=== PATIENT | male | born 1980 ===

== ENCOUNTER 2021-05-26 11:12 | Emergency (ER) | payer SELFPAY ==
--- NOTE | 2021-05-26 11:15 | ED.URI ---
HPI - URI/Sore Throat General Chief Complaint: Upper Respiratory Infection Stated Complaint: fever/swollen glands/sore throat Time Seen by Provider: 05/26/21 11:15 Source: patient and RN notes reviewed History of Present Illness HPI Narrative: Patient is a 40-year-old male who presents the urgent care with complaints of intermittent fevers, sweating, chills, sore throat for the last 5 days. Patient states that he has been on a [place] for 2 days per his primary care provider and states that symptoms are not improving . Patient has been taking ibuprofen as needed for pain and fever. Denies of any nausea, vomiting or cough. No other acute complaints. No acute distress noted. Patient read the plan of care. Some parts of this dictation were generated by voice recognition software and may contain typographical and/or grammatical inaccuracies. Related Data Home Medications Medication Instructions Recorded Confirmed azithromycin 05/26/21 Allergies Allergy/AdvReac Type Severity Reaction Status Date / Time No Known Allergies Allergy Unverified 12/03/17 15:30 Review of Systems Review of Systems: CONSTITUTIONAL: Reports of fever, chills, sweats EYES: Denies visual changes, redness, or discharge. ENT: Reports of sore throat and swollen glands CARDIOVASCULAR: Denies chest pain, palpitations, or edema. RESPIRATORY: Denies cough or dyspnea. GASTROINTESTINAL: Denies abdominal pain, nausea, vomiting, or diarrhea. GENITOURINARY: Denies dysuria or hematuria. SKIN: Denies rash or itching. MUSCULOSKELETAL: Denies back pain, joint pain, or myalgia. NEUROLOGIC: Denies headache, numbness, or weakness. All other systems reviewed are negative, except as documented in HPI. [facility] Family History Family History (Updated 09/20/17 @ 11:13 by DOCTOR UNKNOWN) Father Hypertension Grandparent Family history of malignant neoplasm Social History Social History Smoking status: Former smoker Smoking end date: 06/07/01 Alcohol intake: current Comments At the time of my signature, I reviewed and agree with the nursing past medical, surgical, social, and family history. There is no relevant family history pertinent to the patient complaint. Exam Narrative: GENERAL: This is a well-nourished, well-developed patient, in no apparent distress. HEAD: normocephalic, atraumatic. EYES: PERRL. Sclera clear/white. Vision is grossly intact. EARS: External ears normal, auditory canals clear and without drainage, TMs normal without perforation. Hearing grossly intact. NOSE: External nose normal with no obvious nasal discharge, nares without redness, no rhinorrhea. THROAT: Mucous membranes moist. Moderate erythema of the posterior oropharynx with mild to moderate bilateral tonsillar edema and bilateral exudate with moderate postnasal drainage NECK: Neck supple, mild bilateral submandibular tender lymphadenopathy CARDIOVASCULAR: Regular rate and rhythm without murmurs, gallops, or rubs. RESPIRATORY: Clear to auscultation. Breath sounds equal bilaterally. No wheezes, rales, or rhonchi. SKIN: warm, intact with no suspicious lesions or rash, good texture and turgor. NEURO: awake, alert, and oriented to person, place and time. There were no obvious focal neurologic abnormalities. EXTREMITIES: No clubbing, cyanosis, or edema. Course Vital Signs Vital signs: Vital Signs Temperature 97.6 F 05/26/21 11:24 Pulse Rate 108 H 05/26/21 11:24 Respiratory Rate 16 05/26/21 11:24 Blood Pressure 135/76 05/26/21 11:24 Pulse Oximetry 100 05/26/21 11:24 Temperature 97.6 F 05/26/21 11:24 Pulse Rate 108 H 05/26/21 11:24 Respiratory Rate 16 05/26/21 11:24 Blood Pressure 135/76 05/26/21 11:24 Pulse Oximetry 100 05/26/21 11:24 Reviewed MDM - URI/Sore Throat MDM Narrative Medical decision making narrative: Advised the patient to start the antibiotic regimen tomorrow after taking an extra dose of his 250 mg azithromycin today. Co
[2021-05-26 11:24] VITALS: BP 135/76; PULSE 108; RESP 16; TEMP 36.4; O2SAT 100
== END 2021-05-26 11:35 | disposition home or self-care (01) ==
PROVIDERS: Emergency Provider Nurse Practitioner Family; PCP Family Medicine
DX: J02.9 Acute pharyngitis, unspecified (principal); Z87.891 Personal history of nicotine dependence
CPT/HCPCS: 99203; G0463

== ENCOUNTER 2021-08-23 12:15 | Emergency (ER) | payer OTHER, SELFPAY ==
--- NOTE | 2021-08-23 12:17 | ED.CHESTPAIN ---
HPI - Chest Pain General Chief Complaint: Chest Pain Stated Complaint: Chest pain Time Seen by Provider: 08/23/21 12:20 Source: patient Mode of arrival: ambulatory Limitations: no limitations History of Present Illness HPI narrative: Mr. Angulo is a 40-year-old male patient presenting to the clinic today with complaints of chest pain x 3 days. He reports the chest pain is all left-sided. Also reports shortness of breath with exertion and dizziness associated with this. He denies any known exposure to anybody with Covid. He is a former smoker. No history of cardiac or lung issues. Blood pressure is elevated in the clinic today without history of hypertension. Denies doing any heavy lifting recently. No history of anxiety. Does have some discomfort in the left shoulder however, there is no pain going down the arm or in the jaw. No diaphoresis. Related Data Allergies Allergy/AdvReac Type Severity Reaction Status Date / Time No Known Allergies Allergy Unverified 12/03/17 15:30 Review of Systems Review of Systems: Pertinent positives per HPI. Patient denies any fever, diaphoresis, chills, rash, headache, visual changes, cough, runny nose, sore throat, palpitations, nausea, vomiting, diarrhea, constipation, abdominal pain, or any urinary issues. PMFSH Past Medical History Medical History (Updated 08/23/21 @ 13:11 by Thai Davis DO) Patient denies significant medical history Family History Family History Father Hypertension Grandparent Family history of malignant neoplasm Social History Social History Smoking status: Former smoker Smoking end date: 06/07/01 Alcohol intake: current Comments At the time of my signature, I reviewed and agree with the nursing past medical, surgical, social, and family history. There is no relevant family history pertinent to the patient complaint. Exam Narrative: General: Well-developed, well nourished, in no apparent distress Head: Normocephalic, atraumatic Cardio: Regular rate and rhythm, s1 and s2 normal, no murmur appreciated. Resp: Clear to auscultation bilaterally, no rhonchi, rales, wheezing or rubs. Extremities: No deformity, no edema, no cyanosis, capillary refill less than 2 seconds, peripheral pulses palpable and strong. Integumentary: [place], warm, and dry, intact without lesion, no rashes. Course Course Emergency Course: Portions of this record may have been created with voice recognition software. Level of Care: Express Care Visit Vital Signs Vital signs: Vital Signs Temperature 36.5 C 08/23/21 12:22 Pulse Rate 87 08/23/21 12:22 Respiratory Rate 12 08/23/21 12:22 Blood Pressure 156/86 H 08/23/21 12:22 Pulse Oximetry 99 08/23/21 12:22 Temperature 36.5 C 08/23/21 12:22 Pulse Rate 87 08/23/21 12:22 Respiratory Rate 12 08/23/21 12:22 Blood Pressure 156/86 H 08/23/21 12:22 Pulse Oximetry 99 08/23/21 12:22 Vital signs reviewed Transfer Transfered to: [facility] Transportation: Other (Private car-against medical advice) Transfer rationale: Chest pain rule out non-STEMI Accepting physician: Dr. Davis Transfer comments: Dr. Davis accepted patient. MDM - Chest Pain MDM Narrative Medical decision making narrative: At the time of assessment patient is mildly anxious laying on the stretcher. Reports chest pain to the left side-states it is a tight and stabbing sensation with radiation into the left shoulder. Denies any jaw pain or arm tingling. Does have associated shortness of breath and dizziness with this. No history of hypertension, heart murmur, or any other cardiac issues. He is a former smoker. EKG reveals normal sinus rhythm without ectopy no signs of STEMI. Discussed risk and benefits with the patient and recommend follow-up in the ER to obtain labs, repeat EKG, and chest x-ray as nee
--- NOTE | 2021-08-23 12:20 | ECG_ITS ---
Measurements Intervals [place] Rate: 74 P: 61 [place]: 166 QRS: 5 QRSD: 81 T: 34 QT: 338 QTc: 377 Interpretive Statements SINUS RHYTHM PEAKED T-WAVES ANTERIORLY, CONSIDER HYPERACUTE INJURY, HYPERKALEMIA ABNORMAL EKG NO PREVIOUS ECG AVAILABLE FOR COMPARISON Electronically Signed On 08-23-2021 12:47:11 CDT by Piero Handy M.D.
[2021-08-23 12:22] VITALS: BP 156/86; PULSE 87; RESP 12; TEMP 36.5; O2SAT 99
== END 2021-08-23 12:47 | disposition short-term general hospital (02) ==
PROVIDERS: Emergency Provider Nurse Practitioner Family; PCP Family Medicine
DX: R07.9 Chest pain, unspecified (principal); Z87.891 Personal history of nicotine dependence
CPT/HCPCS: 93005; 99213; G0463

== ENCOUNTER 2021-08-23 12:52 | Emergency (ER) | payer SELFPAY ==
--- NOTE | ~2021-08-23 | XR_ITS ---
EXAMINATION: XR chest 2V 08/23/2021 13:15 INDICATION: Frontal chest wall pain PROCEDURE: 2 view chest COMPARISON: No prior studies for comparison. FINDINGS: The lungs are clear. The cardiomediastinal silhouette is within normal limits. There are no pleural effusions. There is no pneumothorax suspected. IMPRESSION: 1: NO ACUTE CARDIOPULMONARY DISEASE. Reviewed, dictated and finalized at location A.
--- NOTE | 2021-08-23 12:58 | ECG_ITS ---
Measurements Intervals [place] Rate: 71 P: 45 [place]: 161 QRS: -7 QRSD: 86 T: 17 QT: 357 QTc: 389 Interpretive Statements SINUS RHYTHM Normal ECG Electronically Signed On 08-23-2021 15:22:59 CDT by Piero Handy M.D.
[2021-08-23 12:59] VITALS: BP 153/90; PULSE 82; RESP 17; TEMP 36.5; O2SAT 100
--- NOTE | 2021-08-23 13:10 | ED.CHESTPAIN ---
HPI - Chest Pain General Chief Complaint: Chest Pain Stated Complaint: cp, dizzy, sob Time Seen by Provider: 08/23/21 12:57 Source: RN notes reviewed History of Present Illness HPI narrative: Patient presents emergency department from urgent care for chest pain. Patient states he had chest pain for the past 2 days the pain is located left side of the chest and does not radiate described as aching in nature. Pain has been constant for the past 2 days he denies any fevers or chills shortness of breath abdominal pain, nausea, vomiting, diarrhea or any other symptoms denies any previous cardiac history Related Data Allergies Allergy/AdvReac Type Severity Reaction Status Date / Time No Known Allergies Allergy Verified 08/23/21 13:15 Review of Systems Review of Systems: Gen.: Denies fevers or chills ENT: Denies congestion Respiratory: Denies shortness of breath or cough CV: See HPI GI: Denies abdominal pain nausea, emesis or diarrhea Musculoskeletal: Denies back pain or muscle pain Neuro: Denies numbness, tingling, weakness or focal weakness Skin: Denies rash Except as documented, all other systems reviewed and negative [facility] Past Medical History Medical History (Updated 08/23/21 @ 17:18 by Thai Davis DO) Patient denies significant medical history Family History Family History Father Hypertension Grandparent Family history of malignant neoplasm Social History Social History Smoking status: Former smoker Smoking end date: 06/07/01 Alcohol intake: current Exam Narrative: APPEARANCE: No acute distress, nontoxic, resting in bed EYES: EOMI HEENT: Normocephalic, atraumatic, OMM RESPIRATORY: No respiratory distress Clear to auscultation bilaterally with no rhonchi wheezing or rales. CARDIOVASCULAR: Regular rate and rhythm without murmurs rubs or gallops. Chest: Tender palpation of left anterior lateral chest wall with point tenderness in the region of ribs 8 through 10 no swelling or ecchymosis ABDOMINAL: Soft, nontender, nondistended, no rebound or guarding MUSCULOSKELETAl: Moves all extremities. No clubbing, cyanosis or edema. NEURO: Awake and alert. Following commands, speech normal, no focal deficits SKIN:: Warm, dry. No rashes lesions or abrasions PSYCHIATRIC: Normal affect/mood, Course Course Emergency Course: Discussed with patient results of workup and diagnosis. Discussed need for follow-up with primary care, proper use of medication, and reasons to return to the emergency department. Patient understands and agrees to current treatment plan Vital Signs Vital signs: Vital Signs Temperature 97.7 F 08/23/21 12:59 Pulse Rate 82 08/23/21 12:59 Respiratory Rate 17 08/23/21 12:59 Blood Pressure 153/90 H 08/23/21 12:59 Pulse Oximetry 100 08/23/21 12:59 Temperature 97.7 F 08/23/21 12:59 Pulse Rate 83 08/23/21 14:36 Respiratory Rate 16 08/23/21 14:36 Blood Pressure 145/96 H 08/23/21 14:36 Pulse Oximetry 99 08/23/21 14:36 MDM - Chest Pain MDM Narrative Medical decision making narrative: Patient's EKGs and labs are without significant high risk changes. Cardiac risk factors reviewed. Patient is felt likely low risk for ACS and reasonable for further risk stratification testing as an outpatient. Pain was not sudden or maximal in onset without tearing or ripping quality. No other signs of symptoms suggest aortic dissection. A low-risk Wells criteria is noted, PE is felt to be unlikely. No pneumonia seen on evaluation today. Patient is felt to be a reasonable candidate for continued evaluation as an outpatient. Chest has been constant for 2 days with 2 - troponins in the ED Lab Data Result diagrams: 08/23/21 13:11 08/23/21 13:11 Labs: Lab Results 08/23/21 08/23/21 08/23/21 Range/Units 13:11 13:11 13:11 WBC 5.3 (4.5-10
[2021-08-23 13:13] VITALS: O2SAT 100
--- NOTE | 2021-08-23 13:13 | PC.NURSE ---
pt to Xray at this time.
[2021-08-23] MEDS: ASPIRIN 81 MG CHEWABLE TABLET 324 MG PO (13:19)
[2021-08-23 13:20] LABS: Basophils Percent Auto 0.8 % (0.2-1.2); Eosinophils Absolute Auto 0.2 K/mm3 (0-0.3); Eosinophils Percent Auto 4.4 % (0-4.4); Hematocrit 43.6 % (42.0-52.0); Hemoglobin 14.8 g/dL (14.0-18.0); Immature Granulocyte Absolute 0.06 K/mm3 (0.00-0.031); Immature Granulocyte Percent A 1.1 % (0-0.5); Lymphocytes Absolute Auto 1.16 K/mm3 (0.9-3.2); Mean Corpuscular HGB Conc 33.9 g/dl (32-36); Mean Corpuscular Hemoglobin 32.1 pg (26-34); Mean Corpuscular Volume 94.6 fl (80-100); Mean Platelet Volume 10.7 fl (7.4-10.4); Monocytes Absolute Auto 0.3 K/mm3 (0.1-0.6); Monocytes Percent Auto 6.3 % (2.6-8.5); Neutrophils Absolute Auto 3.5 K/mm3 (1.3-6.7); Neutrophils Percent Auto 65.4 % (45.5-73.1); Platelet Count Result 171 k/mm3 (150-375); Red Blood Count 4.61 M/mm3 (4.6-6.20); Red Cell Distribution Width 13.4 % (11.5-14.5); White Blood Count 5.3 K/mm3 (4.5-10.0)
[2021-08-23 13:27] VITALS: PULSE 71
[2021-08-23 13:35] LABS: Alanine Aminotransferase 25 U/L (4-50); Albumin Level 4.4 g/dL (3.5-5.1); Alkaline Phosphatase 58 U/L (38-126); Anion Gap 5 mmol/L (8-16); Aspartate Amino Transferase 29 U/L (17-59); Bilirubin,Total 0.9 mg/dL (0.2-1.3); Blood Urea Nitrogen 18 mg/dL (9-20); Calcium 9.1 mg/dL (8.4-10.2); Carbon Dioxide 28 mmol/L (22-30); Chloride 105 mmol/L (98-107); Estimated CRCL calculation 105 ml/min; Estimated Glomerular Filt Rate > 60; Glucose 99 mg/dL (65-110); Lipase 181 U/L (23-300); Potassium 4.3 mmol/L (3.4-5.0); Sodium 138 mmol/L (137-145)
[2021-08-23 13:37] LABS: Partial Thromboplastin Time 30.7 SECONDS (22.3-36.8)
[2021-08-23 13:43] LABS: D Dimer 0.27 ug/mL (<0.48)
[2021-08-23 13:45] LABS: Troponin I < 0.012 ng/mL (0.000-0.034)
[2021-08-23 14:36] VITALS: BP 145/96; PULSE 83; RESP 16; O2SAT 99
[2021-08-23] MEDS: KETOROLAC 30 MG/ML VIAL (*BKC) IV PUSH (15:17)
[2021-08-23 16:30] LABS: Troponin I < 0.012 ng/mL (0.000-0.034)
[2021-08-23 17:33] VITALS: BP 141/88; PULSE 75; RESP 19; O2SAT 98
== END 2021-08-23 17:35 | disposition home or self-care (01) ==
PROVIDERS: Emergency Provider Emergency Medicine; PCP Family Medicine
DX: R07.89 Other chest pain (principal); Z87.891 Personal history of nicotine dependence
CPT/HCPCS: 36415; 71046; 80053; 83690; 84484; 85025; 85380; 85610; 85730; 93005; 96374; 99284; A9270; J1885